=== PATIENT | male | born 1945 | race American Indian/Alaskan Native ===

== ENCOUNTER 2016-12-29 16:51 | Emergency (ER) | payer MEDICARE ==
[2016-12-29 18:24] LABS: Hemoglobin TNR gm/dl (11.8-15.2); Red Blood Count TNR M/mm3 (3.65-5.03); White Blood Count TNR K/mm3 (4.5-11.0)
[2016-12-29 18:25] LABS: Hematocrit TNR % (35.5-45.6); Mean Corpuscular HGB Conc TNR % (32-34); Mean Corpuscular Hemoglobin TNR pg (28-32); Mean Corpuscular Volume TNR fl (84-94); Mean Platelet Volume TNR fl (6-12); Platelet Count TNR K/mm3 (140-440); Red Cell Distribution Width TNR % (13.2-15.2)
[2016-12-29 18:26] LABS: Basophils % (Auto) TNR % (0.0-1.8); Eosinophils % (Auto) TNR % (0.0-4.3)
[2016-12-29 18:27] LABS: Diff Status TNR
[2016-12-29 18:48] LABS: Basophils % (Auto) 1.1 % (0.0-1.8); Eosinophils % (Auto) 4.3 % (0.0-4.3); Hematocrit 38.8 % (35.5-45.6); Mean Corpuscular HGB Conc 34 % (32-34); Mean Corpuscular Hemoglobin 30 pg (28-32); Mean Corpuscular Volume 90 fl (84-94); Platelet Count 217 K/mm3 (140-440); Red Cell Distribution Width 15.2 % (13.2-15.2); White Blood Count 4.9 K/mm3 (4.5-11.0)
[2016-12-29 18:55] LABS: Potassium TNR mmol/L (3.6-5.0); Sodium TNR mmol/L (137-145)
[2016-12-29 18:56] LABS: Anion Gap TNR mmol/L; BUN/Creatinine Ratio TNR; Blood Urea Nitrogen TNR mg/dL (9-20); Carbon Dioxide TNR mmol/L (22-30); Chloride TNR mmol/L (98-107); Glucose TNR mg/dL (75-100)
[2016-12-29 18:57] LABS: Calcium TNR mg/dL (8.4-10.2)
[2016-12-29 18:58] LABS: INR 1.12 (0.87-1.13)
[2016-12-29 18:59] LABS: Partial Thromboplastin Time 29.2 Sec. (24.2-36.6)
[2016-12-29 19:24] LABS: BUN/Creatinine Ratio 13; Blood Urea Nitrogen 16 mg/dL (9-20); Calcium 8.8 mg/dL (8.4-10.2); Carbon Dioxide 26 mmol/L (22-30); Glucose 115 mg/dL (75-100)
[2016-12-29 19:25] LABS: Anion Gap 19 mmol/L; Chloride 101.4 mmol/L (98-107); Potassium 4.9 mmol/L (3.6-5.0); Sodium 141 mmol/L (137-145)
--- NOTE | 2016-12-29 19:50 | Emergency Department Report ---
ED Shortness of Breath HPI - General Chief Complaint: Dyspnea/Respdistress Stated Complaint: DIFFICULTY BREATHING Time Seen by Provider: 12/29/16 19:43 Source: patient Mode of arrival: Ambulatory Limitations: No Limitations - History of Present Illness Initial Comments: Is a 71-year-old male with a history of COPD, hypertension, diabetes, hyperlipidemia, GERD, DVT and CHF sense to the ER with complaints of sinus pressure and headache 1 week. She states he is short of breath but no more than normal. . patient denies fever and chills. She denies chest pain. Patient states the biggest complaint has is his headache and sinus pressure. MD Complaint: shortness of breath, cough -: Gradual Severity: mild Known History Of: COPD, congestive heart failure, diabetes, DVT Context: recent URI Associated Symptoms: cough Treatments Prior to Arrival: none - Related Data Home Oxygen Therapy: No Previous Rx's Medication Instructions Recorded Last Taken Type Amoxicillin/Potassium Clav 1 each PO BID #20 tablet 12/29/16 Unknown Rx [Augmentin 875-125 Tablet] Fluticasone [Flonase] 1 spray NS BID #1 bottle 12/29/16 Unknown Rx Allergies Allergy/AdvReac Type Severity Reaction Status Date / Time No Known Allergies Allergy Unverified 12/29/16 17:02 ED Review of Systems ROS: Stated complaint: DIFFICULTY BREATHING Other details as noted in HPI Constitutional: no symptoms reported, see HPI Eyes: as per HPI ENT: as per HPI, congestion Respiratory: see HPI, shortness of breath Cardiovascular: as per HPI Endocrine: no symptoms reported Gastrointestinal: as per HPI Genitourinary: as per HPI Musculoskeletal: as per HPI Skin: as per HPI Neurological: as per HPI Psychiatric: as per HPI Hematological/Lymphatic: as per HPI ED Past Medical Hx - Past Medical History Previous Medical History?: Yes Hx Hypertension: Yes Hx Congestive Heart Failure: Yes Hx Diabetes: Yes Hx Deep Vein Thrombosis: Yes (DVT both legs) Hx GERD: Yes Hx COPD: Yes - Surgical History Past Surgical History?: Yes Additional Surgical History: [place] knee surgery - Social History Smoking Status: Former Smoker Substance Use Type: Prescribed - Medications Home Medications: Home Medications Medication Instructions Recorded Confirmed Last Taken Type Amoxicillin/Potassium Clav 1 each PO BID #20 tablet 12/29/16 Unknown Rx [Augmentin 875-125 Tablet] Fluticasone [Flonase] 1 spray NS BID #1 bottle 12/29/16 Unknown Rx ED Physical Exam - General Limitations: No Limitations General appearance: alert, in no apparent distress - Head Head exam: Present: atraumatic, normocephalic - Eye Eye exam: Present: normal appearance - ENT ENT exam: Present: mucous membranes moist, TM's normal bilaterally, other ( bilateral sinus tenderness noted) - Neck Neck exam: Present: normal inspection - Respiratory Respiratory exam: Present: normal lung sounds bilaterally. Absent: respiratory distress - Cardiovascular Cardiovascular Exam: Present: regular rate, normal rhythm. Absent: systolic murmur, diastolic murmur, rubs, gallop - GI/Abdominal GI/Abdominal exam: Present: soft, normal bowel sounds - Rectal Rectal exam: Present: deferred - Extremities Exam Extremities exam: Present: normal inspection - Back Exam Back exam: Present: normal inspection - Neurological Exam Neurological exam: Present: alert, oriented X3 - Psychiatric Psychiatric exam: Present: normal affect, normal mood - Skin Skin exam: Present: warm, dry, intact, normal color. Absent: rash ED Course Vital Signs 12/29/16 12/29/16 12/29/16 17:02 19:33 20:58 Temperature 97.5 F L 97.6 F Pulse Rate 79 67 Respiratory 20 18 20 Rate Blood Pressure 171/75 Blood Pressure 136/71 [Left] O2 Sat by Pulse 98 100 99 Oximetry ED Medical Decision Making - Lab Data Result diagrams: 12/29/16 18:28 12/29/16 19:05 - EKG Data -: EKG Interpreted by Me EKG shows normal: sinus rhythm Rate: normal - EKG Data Interpretation: no acute changes - Radiology Data Radiology results: report reviewed, image reviewed (no acute process. ) Critical care attestation.: If time is entered above; I have spent that time in minutes in the direct care of this critically ill patient, excluding procedure time. ED Disposition Clinical Impression: Sinusitis, SOB (shortness of breath) Disposition: DC-01 TO HOME OR SELFCARE Is pt being admited?: No Does the pt Need Aspirin: No Condition: Stable Instructions: Sinusitis (ED) Additional Instructions: Patient to follow-up with PCP within 3-5 days. Patient to return to ER if condition worsens. Patient to take Tylenol and ibuprofen when necessary for pain. Patient to take prescription meds as directed. Prescriptions: Amoxicillin/Potassium Clav [Augmentin 875-125 Tablet] 1 each PO BID #20 tablet Fluticasone [Flonase] 1 spray NS BID #1 bottle Referrals: PRIMARY CARE,MD [Primary Care Provider] - 3-5 Days Time of Disposition: 21:48
[2016-12-29] MEDS ORDERED: XYLOCAINE 1% MPF 5 mL INFILTRATI ONE (21:46)
[2016-12-29] MEDS ORDERED: ROCEPHIN IM ONE (21:46)
[2016-12-29 22:12] VITALS: BP 147/66
--- NOTE | 2016-12-29 22:23 | XRay Report ---
FINAL REPORT PROCEDURE: XR CHEST ROUTINE 2V TECHNIQUE: PA and lateral chest radiographs were obtained. CPT 79801 HISTORY: Shortness of breath COMPARISON: No prior studies are available for comparison. FINDINGS: Heart: Normal. Mediastinum/Vessels: Normal. Lungs/Pleural space: Bilateral lungs are hyperinflated. There are no confluent infiltrates or mass lesions. Pleural spaces are clear.. Bony thorax: No acute osseous abnormality. Other: IMPRESSION: COPD. No acute pulmonary process.
== END 2016-12-29 22:12 | disposition home or self-care (01) ==
LOC: ED 16:51
DX: J32.9 Chronic sinusitis, unspecified (principal); R06.02 Shortness of breath; I10 Essential (primary) hypertension; E11.9 Type 2 diabetes mellitus without complications; K21.9 Gastro-esophageal reflux disease without esophagitis; J44.9 Chronic obstructive pulmonary disease, unspecified; I82.403 Acute embolism and thrombosis of unspecified deep veins of lower extremity, bilateral; I50.9 Heart failure, unspecified
CPT/HCPCS: 36415; 71020; 80048; 84484; 85025; 85610; 85730; 93005; 93010; 96372; 99284; J0696; J2930